=== PATIENT | male | born 1990 | race African-American/Black ===

== ENCOUNTER 2019-01-29 09:13 | Emergency (ER) | payer OTHER ==
[2019-01-29 09:20] VITALS: BP 151/82
--- NOTE | 2019-01-29 09:48 | ER Document Report ---
HPI - HPI Time Seen by Provider: 01/29/19 09:47 Pain Level: 3 Notes: Patient is a 28-year-old male no significant past medical history who presents complaining of insect bite/sting to his right buttock 30 minutes prior to arrival. Patient states that he has an occasional sharp pain associated, but is primarily pruritic at this time. He has no other concerns or complaints. He has not noticed any significant swelling or discharge. Denies drug allergies. No history of MRSA or IV drug abuse. Denies any headache, fever, URI, sore throat, chest pain, palpitations, syncope, cough, shortness of breath, wheeze, dyspnea, abdominal pain, nausea/vomiting/diarrhea, urinary retention, dysuria, hematuria, loss of control of bowel or bladder, numbness/tingling, saddle anesthesia, muscle paralysis/weakness, or rash. - ROS Systems Reviewed and Negative: Yes All other systems reviewed and negative Past Medical History - Social History Smoking Status: Current Every Day Smoker Family History: Reviewed & Not Pertinent Vertical Provider Document - CONSTITUTIONAL Agree With Documented VS: Yes Notes: PHYSICAL EXAMINATION: GENERAL: Well-appearing, well-nourished and in no acute distress. LUNGS: Breath sounds clear to auscultation bilaterally and equal. No wheezes rales or rhonchi. HEART: Regular rate and rhythm without murmurs, rubs, gallops. Musculoskeletal: FROM to passive/active. Strength 5+/5. Extremities: No cyanosis, clubbing, or edema b/l. Peripheral pulses 2+. Capillary refill less than 3 seconds. NEUROLOGICAL: Normal speech, normal gait. Normal sensory, motor exams PSYCH: Normal mood, normal affect. SKIN: Rt buttock: there is a very small minimally erythemic area w/o any induration, fluctuance, discharge, or swelling noted. Non-tender to palp. No skin sloughing, necrosis, blistering, or erythema migrans. - INFECTION CONTROL TRAVEL OUTSIDE OF THE [place] IN LAST 30 DAYS: No Course - Re-evaluation Re-evalutation: 01/29/19 09:50 Patient is an afebrile, well-hydrated, 28-year-old male who presents with insect bite to right buttocks without evidence of superimposed infection/abscess. Vitals are acceptable without significant tachycardia, tachypnea, or hypoxia. PE is otherwise unremarkable. Patient is nontoxic-appearing and is tolerating p.o. without difficulty. No labs or imaging warranted at this time. No incision and drainage is warranted. Low suspicion for any necrotizing fasciitis, SJS, SSS, drug reaction, sepsis, meningitis, syphilis, Lyme disease, [place] spotted fever, or other systemic emergent condition at this time. Patient aware that condition can change from initial presentation and he needs to monitor symptoms closely and seek medical attention with any acute changes. Recheck with your PCM in 3-5 days. Consider consult with dermatology. Return to the ED with any other worsening/concerning symptoms as reviewed. Patient is in agreement. - Vital Signs Vital signs: Temp Pulse Resp BP Pulse Ox 98.1 F 81 16 151/82 H 97 01/29/19 09:16 01/29/19 09:16 01/29/19 09:16 01/29/19 09:16 01/29/19 09:16 Discharge - Discharge Clinical Impression: Insect bite Qualifiers: Encounter type: initial encounter Site of insect bite: unspecified site Qualified Code(s): W57.XXXA - Bitten or stung by nonvenomous insect and other nonvenomous arthropods, initial encounter Condition: Stable Disposition: HOME, SELF-CARE Instructions: Insect Bites ([facility]) Additional Instructions: Keep the skin clean Wash with soap and water Tylenol/ibuprofen if needed Triple antibiotic ointment daily Take medication as directed Monitor for any worsening symptoms Recheck with your PCM in 3-5 days Return to the ED with any worsening symptoms and/or development of fever, headache, chest pain, palpitations, syncope, shortness of breath, trouble breathing, abdominal pain, n/v/d, abscess, purulent discharge, red streaks, worsening swelling, or other worsening symptoms that are concerning to you. Forms: Elevated Blood Pressure, Smoking Cessation Education, Return to Work Referrals: RADHA ROBLERO, [ACTIVE STAFF] - Follow up as needed
== END 2019-01-29 09:55 | disposition home or self-care (01) ==
LOC: ER 09:13
DX: S30.860A Insect bite (nonvenomous) of lower back and pelvis, initial encounter (principal); W57.XXXA Bitten or stung by nonvenomous insect and other nonvenomous arthropods, initial encounter; F17.200 Nicotine dependence, unspecified, uncomplicated
CPT/HCPCS: 99281